=== PATIENT | female | born 1940 | race Caucasian/White ===

== ENCOUNTER → 2016-06-15 07:16 | Day surgery (SDC) | payer MEDICARE, BC ==
--- NOTE | 2016-06-08 15:26 | HP ---
CC: Dr. Mary Bolden HISTORY AND PHYSICAL: DATE OF PLANNED ADMISSION AND SURGERY: 06/15/16 HISTORY OF PRESENT ILLNESS: Ms. Arzate is a 76-year-old white female who is admitted with a bladder tumor for cystoscopy and excisional biopsies. Ms. Arzate noted an episode of total gross painless hematuria about two years ago. It was not associated with any voiding symptoms or any flank pain. It resolved spontaneously and she did well afterwards. No consultation sought, and she did not have any work-up. About 3 weeks ago, she had an episode of painless gross hematuria. It persisted for about a day and resolved spontaneously.I was not associated with any renal or voiding symptoms. She was evaluated by Dr. Bolden who obtained a CT of the abdomen and pelvis with intravenous contrast. The study showed normal kidneys, normal collecting systems and ureters without any abnormal filling defects. The patient was then evaluated in my office. She had a cystoscopy which showed a 1.5 to 2 cm flat lesion in the left lateral bladder wall. 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 Because of that finding, the patient is admitted for the above procedure. PAST MEDICAL HISTORY AND SYSTEM REVIEW: The patient was a smoker of about one pack per day for 30 years; however, she stopped about 25 years ago. She has developed COPD and she is on inhalers as needed. She does not require oxygen. She is fairly active. She has history of hypertension and has been on lisinopril 5 mg daily. She has some arthritis on supplements. ALLERGIES/INTOLERANCES: She denies any allergies to medication, but is intolerant to Codeine. 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 She has not had any pelvic surgeries. PHYSICAL EXAM: GENERAL: Pleasant white female who looks her age. VITAL SIGNS: Blood pressure 120/80, pulse 70. LUNGS: Clear. HEART: Regular and rhythmic. No murmurs. ABDOMEN: Soft. No masses, no tenderness, and no CVA tenderness. PELVIC EXAM: Done at the time of the cystoscopy showed no pelvic masses. IMPRESSION: 1. Bladder tumor, with normal upper tracts by CT of the abdomen and pelvis with IV contrast. 2. Chronic obstructive pulmonary disease with past history of smoking. PLAN: Plan is for cystoscopy and excisional biopsies of the bladder tumor. I discussed the above plans with the patient. She understands that she might require additional treatments depending upon the pathology report. Some of the potential complications of the procedure include infection, hematuria, small incidence of bladder perforation. All her questions were answered. [id number]/[facility] #: [id number] RED
[~2016-06-15 07:16] MED LIST: Buffered Lidocaine 1% SYR 3ML* 3 ML/SYR SYRINGE INTRADERM ONE; Dexamethasone IV* 4 MG/ML 1 ML (4 MG) IV SLOW PU ONE; Dexamethasone IV* 4 MG/ML 1 ML (4 MG) ONE; DiMENhydriNATE IV* 50 MG/ML VIAL IV PUSH PRN; Famotidine IV* 10 MG/ML 2 ML (20 mg) IV ONE; Famotidine IV* 10 MG/ML 2 ML (20 mg) ONE; HYDROmorphone INJ* 1 MG/ML CARPUJECT SYRINGE IV PRN; HYDROmorphone INJ* 1 MG/ML CARPUJECT SYRINGE ONE; Ketorolac INJ* 30 MG/ML 1 ML VIAL ONE; Lidocaine 2% PF * 5 ML VIAL ONE; Midazolam* 1 MG/ML 2 ML VIAL (2 MG) ONE; Ondansetron INJ* 2 MG/ML VIAL ONE; PROCHLORPERAZINE INJ 5 MG/ML 2 ML VIAL IV PRN; Propofol* 10 MG/ML 20 ML BTL IV PUSH ONE; cefTRIAXone VIAL(*) 1,000 MG in NS 0.9% 50 ML* 50 ML IVPB ONE; fentaNYL* 50 MCG/ML 2 ML VIAL (100 MCG VIAL) IV PRN; fentaNYL* 50 MCG/ML 2 ML VIAL (100 MCG VIAL) ONE; mitoMYcin PWD* 40 MG in Sterile Water for Inj* 40 ML IRRIGATION ONE
[2016-06-15 12:06] VITALS: BP 131/79
--- NOTE | 2016-06-15 23:56 | OP ---
DATE OF OPERATION: 06/15/16 [facility] DATE OF : 36 SURGEON: Dr. Wade. ANESTHESIOLOGIST: Diallo Arrieta MD. ANESTHESIA: General. PRE-OP DIAGNOSIS: Bladder tumor (left posterolateral bladder wall, 1.5 cm). POST-OP DIAGNOSIS: Bladder tumor (left posterolateral bladder wall, 1.5 cm). OPERATIVE PROCEDURE: Cystoscopy, excisional biopsies and fulguration of the tumor of left posterior bladder wall (1.5 cm). INDICATION FOR PROCEDURE: Ms. Arzate is a 76-year-old white female with past history of smoking and was referred by Dr. Bolden because of recurrent episodes of gross painless hematuria. CT of the abdomen and pelvis with IV contrast showed normal kidneys, ureters, and bladder, no abnormal filling defects noted. Office cystoscopy showed a 1.5 cm tumor in the left posterolateral bladder wall. 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 PATHOLOGY: At cystoscopy, there was a 1.5 cm flat papillary tumor in the left posterolateral bladder wall. 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 . The ureteral orifices looked normal. There were no other suspicious bladder lesions seen. No areas to suggest carcinoma in situ. No bladder diverticula noted. Pelvic examination showed no bladder masses and no pelvic masses. DESCRIPTION OF PROCEDURE: After successful general anesthesia, the patient was placed in the dorsal lithotomy position and was prepped and draped for a cystoscopy. Cystoscopy was performed. The bladder was carefully inspected and the above findings were noted. Using the rigid biopsy forceps, the above tumor was excised. Muscle fibers were seen in the bed of the tumor. There was; however, no bladder perforation. The bed of the tumor and the surrounding area was thoroughly fulgurated with the Bugbee electrode with the coagulation current. At the completion of the procedure, there was very good hemostasis. There was no residual tumor noted. There was no evidence of any bladder perforation. The left ureteral orifice was intact. The cystoscope was removed and the size 16-Maltese Corbin catheter was passed inside the bladder and the balloon inflated with 10 cc of water. Bimanual exam was then performed. The patient tolerated the procedure well and left the operating room in good condition. The plan is to give the patient to 1 dose of intravesical mitomycin-C in the PACU. CC: Dr. Mary Bolden * [id number]/[facility] #: [id number] RED
== END | disposition home or self-care (01) ==
LOC: OR 07:16
PROVIDERS: ATTEND Urology
DX: C67.4 Malignant neoplasm of posterior wall of bladder (principal); I10 Essential (primary) hypertension; J44.9 Chronic obstructive pulmonary disease, unspecified
CPT/HCPCS: 88305; J0696; J1100; J1170; J1885; J2250; J2405; J2704; J3010; J9280

== ENCOUNTER 2018-04-07 18:22 | Emergency (ER) | payer MEDICARE, OTHER ==
--- NOTE | 2018-04-07 18:28 | UC ---
Laceration HPI - HPI Summary HPI Summary: 77 yo female presents with RIGHT leg laceration. 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 She bandaged the area and came to . - History Of Current Complaint Stated Complaint: LEG LACERATION Time Seen by Provider: 04/07/18 18:28 Hx Obtained From: Patient Laceration Location: Leg Mechanism Of Injury: Blunt Trauma Severity: Mild Pain Intensity: 3 - Allergies/Home Medications Allergies/Adverse Reactions: Allergies Allergy/AdvReac Type Severity Reaction Status Date / Time codeine Allergy Unknown Unknown Verified 04/07/18 18:31 Reaction Details Home Medications: Home Medications Lisinopril TAB* [Prinivil TAB*] 5 mg PO DAILY 04/07/18 [History Confirmed ] PMH/Surg Hx/FS Hx/Imm Hx Cardiovascular History: Hypertension Respiratory History: COPD - Surgical History Surgical History: Yes Surgery Procedure, Year, and Place: APPENDECTOMY A CHILD. 1968 CSECTION, [facility]. 2007 BILATERAL CATARACT EXTRACTION WITH IOL IMPLANTS, [facility],cystoscopy - Social History Lives: With Family Alcohol Use: Daily Substance Use Type: None Smoking Status (MU): Former Smoker Type: Cigarettes Amount Used/How Often: 1 PPD FOR ABOUT 25+ YEARS Length of Time of Smoking/Using Tobacco: 25+ Have You Smoked in the Last Year: No When Did the Patient Quit Smoking/Using Tobacco: - Immunization History Most Recent Tetanus Shot: October 2013 Review of Systems All Other Systems Reviewed And Are Negative: Yes Constitutional: Positive: Negative Skin: Positive: Other - Right leg laceration Respiratory: Positive: Negative Cardiovascular: Positive: Negative Neurological: Positive: Negative Psychological: Positive: Negative Physical Exam - Summary Physical Exam Summary: GENERAL: NAD. WDWN. No pain distress. SKIN: RIGHT LE.5cm flap-like laceration extending into the subcutaneous tissue with fat exposed. Mild active bleeding. Wound appears cleaned CHEST: No accessory muscle use. Breathing comfortably and in no distress. CV: Pulses intact. Cap refill <2seconds NEURO: Alert. PSYCH: Age appropriate behavior. Triage Information Reviewed: Yes Vital Signs: Vital Signs: Temp Pulse Resp BP Pulse Ox 98.1 F 97 16 155/80 89 04/07/18 18:26 04/07/18 18:26 04/07/18 18:26 04/07/18 18:26 04/07/18 18:26 Vital Signs Reviewed: Yes Laceration Repair - Laceration Repair 1 Description: Stellate Laceration Size After Repair: Length (cm) - 3.5 Modified For Repair: No Type Injection: Local Anesthesia Used: 2.0% Lido Irrigation With Pressure Irrigation Device: Yes Closure Material: Sutures - #9 Closure Method: Single Layer Suture Of: Skin Suture Type: Prolene Laceration Course/Dx - Course/Dx Course Of Treatment: The procedure was explained to the pt and all questions were answered. A time out was performed, witnessed, and signed. The area was irrigated with 500mL sterile saline. 2mL of 2% lidocaine without epi was administered and good anesthetization was achieved. In the usual sterile fashion , EIGHT 5-0 and ONE 6-0 prolene interrupted sutures were placed. The wound was bandaged with telfa. Pt tolerated procedure well. - Diagnosis Provider Diagnosis: Laceration of right lower leg Discharge - Sign-Out/Discharge Documenting (check all that apply): Patient Departure All imaging exams completed and their final reports reviewed: No Studies - Discharge Plan Condition: Stable Disposition: HOME Patient Education Materials: Care For Your Stitches (DC), Laceration (DC) Referrals: Mary Bolden MD [Primary Care Provider] - Additional Instructions: If you develop a fever, shortness of breath, chest pain, new or worsening symptoms - please call your PCP or go to the ED. Your blood pressure was high at todays visit. Please see your primary provider within 4 weeks for recheck and re-evaluation. 1) Please keep the area bandaged, clean, dry, and intact for the next 24- 48hours. 2) If you develop a fever, colored or thick discharge, increased pain or swelling - please call your PCP or go to the ED. 3) Please return in 10 days to have your NINE sutures removed. - Billing Disposition and Condition Condition: STABLE Disposition: Home
[2018-04-07 18:30] VITALS: BP 155/80
[2018-04-07] MEDS ORDERED: Lidocaine 2% PF * 5 ML VIAL INJ ONE (18:36)
== END 2018-04-07 19:25 | disposition home or self-care (01) ==
LOC: UCEAST 18:22
DX: S81.811A Laceration without foreign body, right lower leg, initial encounter (principal); W22.03XA Walked into furniture, initial encounter; Y92.009 Unspecified place in unspecified non-institutional (private) residence as the place of occurrence of the external cause; Z88.5 Allergy status to narcotic agent; I10 Essential (primary) hypertension; Z87.891 Personal history of nicotine dependence
CPT/HCPCS: 12002; 99211; G0463

== ENCOUNTER 2019-01-13 16:49 | Emergency (ER) | payer MEDICARE, OTHER ==
--- OUTSIDE RECORDS SUMMARY | 2019-01-13 16:57 | XMS REPORT | Continuity of Care Document ---
:1940 External Reference #:[id number] Author Name Mary Bolden M.D. Address [address] [place] [address] Care Team Providers Name Role Phone Mary Bolden - Family Medicine Care Team Information Sales Outfitter Lashawn Jimenez MD - Dermatology Care Team Information Sales Outfitter Estevan Randhawa - Urology Care Team Information Sales Outfitter [phone] Kun Wade - Urology Care Team Information Sales Outfitter [phone] [facility] Radiology Department - Diagnostic Care Team Information Sales Outfitter Radiology Christine Mora-Josh - Care Team Information Sales Outfitter [phone] Gastroenterology Problems Active Problems Provider Date Essential hypertension Alba Tyler M.D. Onset: 05/25/2011 Chronic obstructive lung disease Alba Tyler M.D. Onset: 05/25/2011 Hyperlipidemia Alba Tyler M.D. Onset: 05/25/2011 Impaired fasting glycaemia Alba Tyler M.D. Onset: 05/25/2011 Adult health examination Alba Tyler M.D. Onset: 09/21/2011 Contact dermatitis Alba Tyler M.D. Onset: 09/21/2011 Arthropathy Alba Tyler M.D. Onset: 09/21/2011 Hematuria syndrome Alba Tyler M.D. Onset: 09/21/2011 Contact dermatitis due to solvents Mary Bolden M.D. Onset: 05/29/2012 Arthropathy Mary Bolden M.D. Onset: 09/25/2012 Vitamin D deficiency Mary Bolden M.D. Onset: 09/25/2012 Allergic arthritis of multiple sites Mary Bolden M.D. Onset: 2014 Social History Type Date Description Comments Sex Unknown Tobacco Use Start: Unknown End: Former Cigarette Smoker 1 quit in the . x Unknown Pack Daily ~ 25 years. smoked about 30 years. ETOH Use Some once daily Tobacco Use Start: Unknown End: Patient is a former smoker Unknown Smoking Status Reviewed: 09/30/18 Patient is a former smoker Allergies, Adverse Reactions, Alerts Active Allergies Reaction Severity Comments Date Codeine Medications Active Medications SIG Qnty Indications Ordering Date Provider Prilosec OTC 1 by mouth every 90tabs Mary Pham 12/09/2018 20mg day Chandana Bolden Tablets DR Fluticasone Inhale 1 puff By 60units Mary Pham 07/14/2018 Propionate/Salmetero Mouth Two Times Chandana Bolden l Diskus Daily 100-50mcg/Dose Aerosol Lisinopril 1 by mouth every 90tabs I10 Coco 04/25/2017 5mg day Josse, ENVIRONMENTAL TECHNICIAN Tablets [place] Mary Pham 02/08/2015 Women's Daily Mov. Chandana Bolden Fish Oil 2 daily Mary Pham 07/30/2013 600mg Chandana Bolden Capsules Glucosamine Sulfate 1 daily Mary Pham 07/30/2013 Chandana Bolden 500mg Capsules Spiriva Handihaler inhale the 30caps Mary Pham 11/18/2008 contents of one Chandana Bolden 18mcg Capsules capsule in the handihaler once daily Ketoconazole Shampoo Unknown History Medications Ranitidine HCL take one 60tabs K21.9 Mary Pham 12/05/2018 - 150mg Tablets tablet by Chandana Bolden 12/23/2018 mouth two times daily Methylprednisolone day 1- take 5 15tabs R21 Waldemar Coburn 09/30/2018 - 4mg Tablets tablets day 2- Chandana Ozuna 12/05/2018 take 4 tablets day 3- take 3 tablets day 4- take 2 tablets day 5- take 1 tablet Medications Administered in Office Medication SIG Qnty Indications Ordering Provider Date H1N1 MDCR vaccine any route Coco Domínguez, 05/07/2009 Chandana Injection TB Intradermal Test TWIN Gutierrez 06/16/2003 Injection Allergy Injection Two Or Nurse, Nurse 09/16/1996 More Injection Immunizations CPT Code Status Date Vaccine Reaction Lot # 60521 Given 01/14/2018 Influenza Vac, Quadriv[place], [place] [id number] Given 08/05/2014 Pneumococcal Conjugate Vacc-13 [id number] 67564 Given 02/04/2014 High-Dose, Influenza Virus [id number] Vacccine-fluzone 65 and older 66497 Given 01/27/2012 DO Not Use Split Influenza Virus Vaccine 95241 Given 01/05/2011 DO Not Use Split Influenza Virus Vaccine 67421 Given 08/31/2010 Zostivax [id number] 61111 Given 01/19/2010 Pneumococcal Immunization [id number] 17065 Given 01/19/2010 DO Not Use Split Influenza Virus [id number] Vaccine 29312 Given 02/16/2009 DO Not Use Split Influenza Virus [id number] Vaccine 49857 Given 02/16/2008 DO Not Use Split Influenza Virus [id number] Vaccine 95791 Given 02/07/2007 DO Not Use Split Influenza Virus [id number] Vaccine 14915 Given 03/02/2006 DO Not Use Split Influenza Virus [id number] Vaccine 22677 Given 03/08/2004 Influenza Virus Vaccine, Live For Intranasla Use 68244 Given 03/31/2001 Influenza Immunization 58849 Given 03/31/2001 Influenza Immunization 13076 Given 03/31/2001 DO Not Use Split Influenza Virus Vaccine 63189 Given 01/13/2001 Pneumococcal Immunization 81093 Given 02/26/2000 DO Not Use Split Influenza Virus Vaccine 56014 Given 02/21/1999 DO Not Use Split Influenza Virus Vaccine 54411 Given 02/24/1998 Influenza Immunization 01514 Given 02/18/1997 Influenza Immunization 61101 Given 11/12/1995 Td Immunization, For Use In Individuals 7 Years Or Older [id number] Ordered 10/27/2013 Tdap Tetanus, W Pertussis [facility] Vital Signs Date Vital Result Comment 12/23/2018 4:09pm BP Systolic 170 mmHg BP Diastolic 90 mmHg BP Systolic Recheck 165 mmHg BP Diastolic Recheck 80 mmHg Heart Rate 88 /min Body Temperature 98.6 F Respiratory Rate 12 /min O2 % BldC Oximetry 94 % Height 64.5 inches 5'4.50" per pt Weight 116.00 lb BMI (Body Mass Index) 19.6 kg/m2 12/05/2018 11:07am BP Systolic 120 mmHg BP Diastolic 64 mmHg Heart Rate 72 /min Body Temperature 97.8 F Respiratory Rate 16 /min Weight 116.00 lb Results Description No Information Available Procedures Date Code Description Status 12/23/2018 41823 Electrocardiogram Complete Completed 02/17/2007 51722680 Mammogram Completed Medical Devices Description No Information Available Encounters Type Date Location Provider Dx Diagnosis Office Visit 12/05/2018 [facility] Office Mary Bolden, R25.2 Cramp and spasm 11:00a Chandana K21.9 Gastro-esophageal reflux disease without esophagitis R21 Rash and other nonspecific skin eruption Office Visit 09/30/2018 2:00p [facility] Office Joselin Moreno R21 Rash and other CHINTAN Saucedo nonspecific skin eruption Office Visit 09/18/2018 9:40a [facility] Office Mary Pierson44.9 Chronic Chandana Bolden obstructive pulmonary disease, unspecified M13.89 Other specified arthritis, multiple sites I10 Essential (primary) hypertension C67.9 Malignant neoplasm of bladder, unspecified Z63.79 Other stressful life events affecting family and household Assessments Date Code Description Provider 12/23/2018 I10 Essential (primary) hypertension Mary Bolden M.D. 12/23/2018 K21.9 Gastro-esophageal reflux disease without Mary Bolden M.D. esophagitis 12/23/2018 J44.9 Chronic obstructive pulmonary disease, Mary Bolden M.D. unspecified 12/23/2018 R06.02 Shortness of breath Mary Bolden M.D. 12/05/2018 R25.2 Cramp and spasm Mary Bolden M.D. 12/05/2018 K21.9 Gastro-esophageal reflux disease without Mary Bolden M.D. esophagitis 12/05/2018 R21 Rash and other nonspecific skin eruption Mary Bolden M.D. 09/30/2018 R21 Rash and other nonspecific skin eruption CHINTAN Riley 09/18/2018 J44.9 Chronic obstructive pulmonary disease, Mary Bolden M.D. 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 09/18/2018 I10 Essential (primary) hypertension Mary Bolden M.D. 09/18/2018 C67.9 Malignant neoplasm of bladder, unspecified Mary Bolden M.D. 09/18/2018 Z63.79 Other stressful life events affecting Mary Bolden M.D. family and household Plan of Treatment Future Appointment(s):12/24/2018 9:15 am - Mary Bolden M.D. at [facility]01/08/2019 9:00 am - Mary Bolden M.D. at [facility]12/23/2018 - Mary Bolden M.D.I10 Essential (primary) hypertensionNew Labs:CCS-Comp And Lipid ([facility]), Ordered: 12/23/18Hemoglobin A1c ( [facility]), Ordered: 12/23/18Brain Natural Peptide, Ordered: 12/23/18Comments:blood pressure readings came down to 168/80 on the right, and 165/80 on the left with good pulses onboth wrists.K21.9 Gastro-esophageal reflux disease without lbyejzlgjmiE91.9 Chronic obstructive pulmonary disease, unspecifiedComments: continue pulmonary rehab.R06.02 Shortness of breathNew Labs:TSH ([facility] ), Ordered: 12/23/18CBC Electronic ([facility]), Ordered: 12/23/18CCS-Comp And Lipid ( [facility]), Ordered: 12/23/18Brain Natural Peptide, Ordered: 12/23/18Comments:ekg unchanged from previous. LVH - left ventricular hypertrophywill order an ultrasound and stress test. You are not being overdramatic, and you can go to the ER , and probably SHOULD go to the ER if your shortness of breath continues to be worse.AllComments:Medication Management Patient Understands medications she's taking? Yes No Are there Barriers to Adherence? Yes No Has the patient been asked about herbal supplements and therapies, and OTC meds? Yes No Functional Status Description No Information Available Mental Status Description No Information Available Referrals Refer to Reason for Referral Status Appt Date Christine Mora PA-C New onset GERD jw Scheduled 01/01/[address] [place] [address] [phone]
--- OUTSIDE RECORDS SUMMARY | 2019-01-13 16:57 | XMS REPORT | Continuity of Care Document ---
:1940 External Reference #:[id number] Author Name Mary Bolden M.D. Address [address] [place] [address] Care Team Providers Name Role Phone Mary Bolden - Family Medicine Care Team Information Sprue Knocker Lashawn Jimenez MD - Dermatology Care Team Information Sprue Knocker [phone] Estevan Randhawa - Urology Care Team Information Sprue Knocker [phone] Kun Wade - Urology Care Team Information Sprue Knocker [phone] [facility] [place] [facility] Radiology Department - Diagnostic Care Team Information Sprue Knocker Radiology Christine Mora PA-C - Care Team Information Sprue Knocker [phone] Gastroenterology Danielito Goldman MD - Cardiovascular Care Team Information Sprue Knocker [phone] Disease Problems Active Problems Provider Date Essential hypertension [...] a former smoker Unknown Smoking Status Reviewed: 01/08/19 Patient is a former smoker Allergies, Adverse Reactions, Alerts Active Allergies Reaction Severity Comments Date Codeine Medications Active Medications SIG Qnty Indications Ordering Date Provider Respiratory Therapy continue J44.9 Mary Pham 01/08/2019 respiratory Chandana Bolden therapy. Cephalexin 1 by mouth three 21tabs S81.812A Mary Pham 01/08/2019 250mg times a day Chandana Bolden Tablets Ranitidine HCL take 1 tablet by 60tabs Lakisha Bridges, 12/26/2018 150mg mouth one or two FURNITURE DIPPER Tablets times daily Prilosec OTC 1 by mouth every 90tabs Mary Pham 12/09/2018 20mg day Chandana Bolden Tablets DR Fluticasone Inhale 1 puff By 60units Mary Pham 07/14/2018 Propionate/Salmetero Mouth Two Times Chandana Bolden l Diskus Daily 100-50mcg/Dose Aerosol Lisinopril 1 by mouth every 90tabs I10 Coco 04/25/2017 5mg day Josse, FURNITURE DIPPER Tablets [place] Light Mary Pham 02/08/2015 Women's Daily Mov. Chandana Bolden Fish Oil 2 daily Mary Pham 07/30/2013 600mg Chandana Bolden Capsules Glucosamine Sulfate 1 daily Mary Pham 07/30/2013 Chandana Bolden 500mg Capsules Spiriva Handihaler inhale the 30caps Mary Ankit 11/18/2008 contents of one Chandana Bolden 18mcg Capsules capsule in the handihaler once daily Ketoconazole Shampoo Unknown History Medications Methylprednisolone take as 21units Lakisha Bridges, 12/26/2018 - 4mg TBPK directed FURNITURE DIPPER 01/08/2019 Ranitidine HCL take one tablet 60tabs K21.9 Mary Pham 12/05/2018 - 150mg Tablets by mouth two Chandana Bolden 12/23/2018 times daily Methylprednisolone day 1- take 5 15tabs R21 Waldemar Coburn 09/30/2018 - 4mg Tablets tablets day 2- Chandana Ozuna 12/05/2018 take 4 tablets day 3- take 3 tablets day 4- take 2 tablets day 5- take 1 tablet Medications Administered in Office Medication SIG Qnty Indications Ordering Provider Date H1N1 MDCR vaccine any route Coco Domígnuez, 05/07/2009 Chandana Injection TB Intradermal Test Lakisha Bridges, [facility] 06/16/2003 Injection Allergy Injection Two Or Nurse, Nurse 09/16/1996 More Injection Immunizations CPT Code Status Date Vaccine Reaction Lot # [id number] Given 01/14/2018 Influenza Vac, Quadriv[place], [place] [id number] Given 08/05/2014 Pneumococcal Conjugate Vacc-13 [id number] 04012 Given 02/04/2014 High-Dose, Influenza Virus [id number] Vacccine-fluzone 65 and older 60897 Given 01/27/2012 DO Not Use Split Influenza Virus Vaccine 85717 Given 01/05/2011 DO Not Use Split Influenza Virus Vaccine 46838 Given 08/31/2010 Zostivax [id number] 18126 Given 01/19/2010 Pneumococcal Immunization [id number] 15881 Given 01/19/2010 DO Not Use Split Influenza Virus [id number] Vaccine 13520 Given 02/16/2009 DO Not Use Split Influenza Virus [id number] Vaccine 38142 Given 02/16/2008 DO Not Use Split Influenza Virus [id number] Vaccine 61788 Given 02/07/2007 DO Not Use Split Influenza Virus [id number] Vaccine 98209 Given 03/02/2006 DO Not Use Split Influenza Virus [id number] Vaccine 08531 Given 03/08/2004 Influenza Virus Vaccine, Live For Intranasla Use 16745 Given 03/31/2001 Influenza Immunization 71753 Given 03/31/2001 Influenza Immunization 89105 Given 03/31/2001 DO Not Use Split Influenza Virus Vaccine 85634 Given 01/13/2001 Pneumococcal Immunization 47654 Given 02/26/2000 DO Not Use Split Influenza Virus Vaccine 95863 Given 02/21/1999 DO Not Use Split Influenza Virus Vaccine 46506 Given 02/24/1998 Influenza Immunization 05041 Given 02/18/1997 Influenza Immunization 17509 Given 11/12/1995 Td Immunization, For Use In Individuals 7 Years Or Older 23472 Ordered 10/27/2013 Tdap Tetanus, W Pertussis ER/[facility] [place] Vital Signs Date Vital Result Comment 01/08/2019 9:03am BP Systolic 140 mmHg BP Diastolic 64 mmHg Heart Rate 78 /min Body Temperature 97.9 F Respiratory Rate 16 /min Height 64.5 inches 5'4.50" per pt Weight 112.00 lb BMI (Body Mass Index) 18.9 kg/m2 12/23/2018 4:09pm BP Systolic 170 mmHg BP Diastolic 90 mmHg BP Systolic Recheck 165 mmHg BP Diastolic Recheck 80 mmHg Heart Rate 88 /min Body Temperature 98.6 F Respiratory Rate 12 /min O2 % BldC Oximetry 94 % Height 64.5 inches 5'4.50" per pt Weight 116.00 lb BMI (Body Mass Index) 19.6 kg/m2 Results Test Date Facility Test Result H/L Range Note Laboratory test 12/24/2018 [facility] Hemoglobin A1c 5.2 % % 4.1- 5.7 finding (607)- - (Fma) Brain Natural Peptide 138 pg/mL High <100 Laboratory test finding 12/24/2018 Osorio Rachel(fma) TSH 1.35 mIU/L 0.50-6.00 Comprehensive Metabolic 12/24/2018 Devon Rachel([facility]ma) Sodium 135 mEq/L 134-149 Prof Potassium 3.8 mEq/L 3.6-5.5 Chloride 99 mEq/L 94-112 Carbon Dioxide 32 mEq/L 21-32 Glucose 115 mg/dL High 70-105 1 BUN 12 mg/dL 6-26 Creatinine 0.8 mg/dL 0.6-1.4 BUN/Creat Ratio 15.0 CALC 8.0-36.0 Calcium 8.7 mg/dL 8.6-10.2 Total Protein 5.9 g/dL Low 6.4-8.3 Albumin 3.9 g/dL 3.8-5.5 Globulin 2.0 g/dL 2.0-4.8 A/G Ratio 1.9 CALC 0.6-2.3 Alk. Phosphatase 98 U/L 30-110 Alt (SGPT) 10 U/L 7-35 Ast (Sgot) 18 U/L 5-34 Total Bilirubin 0.8 mg/dL 0.2-1.3 GFR Non- >60 ml/min/1.73m^ >=60 GFR >60 ml/min/1.73m^ >=60 Lipid Profile 12/24/2018 Devon Ramos([facility]) Cholesterol 185 mg/dL 120- 200 Triglycerides 96 mg/dL 30-200 HDL Cholesterol 56 mg/dL 30-85 LDL (Calculated) 110 CALC 0-129 VLDL Cholesterol 19 mg/dL 0-50 HDL Risk Factor 3.3 CALC 0.0-4.4 CBC Electronic a 12/24/2018 Devon Ramos([facility]) WBC 5.7 x10^3/UL 4.0- 10.0 RBC 4.16 x10^6/UL 3.93-6.00 HGB 13.5 g/dL 12.0-17.0 HCT 41 % 35-50 MCV 98.1 fL High 80.0-95.0 MCH 32.5 pg High 25.6-32.2 MCHC 33.1 g/dL 32.2-36.0 RDW-CV 13.0 % 11.6-14.4 PLT 180 x10^3/UL 163-400 MPV 10.0 fL 9.4-12.4 Damari# 3.22 x10^3/UL 1.56-6.13 Lymph# 1.08 x10^3/UL Low 1.18-3.74 Wilbarger# 0.72 x10^3/UL 0.24-0.82 Eos # 0.6 x10^3/UL High 0.0-0.5 Baso # 0.05 x10^3/UL 0.01-0.08 Damari% 56.9 % 34.0-70.0 Lymph % 19.1 % Low 20.0-52.0 Wilbarger% 12.7 % High 5.0-12.0 Eos% 10.4 % High 0.7-7.0 Baso% 0.9 % 0.1-1.2 1 consistent w/ previous results Procedures Date Code Description Status 12/23/2018 89553 Pulse Oximetry Completed 12/23/2018 41135 Electrocardiogram Complete Completed 02/17/2007 38196203 Mammogram Completed Medical Devices Description No Information Available Encounters Type Date Location Provider Dx Diagnosis Office Visit 12/23/2018 [facility] Office Mary Pham I10 Essential (primary) 3:00p Chandana Bolden hypertension K21.9 Gastro-esophageal reflux disease without esophagitis J44.9 Chronic obstructive pulmonary disease, unspecified R06.02 Shortness of breath Office Visit 12/05/2018 11:00a [facility] Office Mary Pham R25.2 Cramp and Chandana Bolden spasm K21.9 Gastro-esophageal reflux disease without esophagitis R21 Rash and other nonspecific skin eruption Office Visit 09/30/2018 2:00p [facility] Office Joselin Moreno R21 Rash and other CHINTAN Saucedo nonspecific skin eruption Office Visit 09/18/2018 9:40a [facility] Office Mary Pham J44.9 Chronic Chandana Bolden obstructive pulmonary disease, unspecified 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 examination without abnormal findings 01/08/2019 I10 Essential (primary) hypertension Mary Bolden M.D. 01/08/2019 R73.01 Impaired fasting glucose Mary Boldne M.D. 01/08/2019 J44.9 Chronic obstructive pulmonary disease, Mary Bolden M.D. 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 01/08/2019 M54.5 Low back pain Mary Bolden M.D. 01/08/2019 S81.812A Laceration without foreign body, left Mary Bolden M.D. lower leg, initial encounter 12/24/2018 R06.02 Shortness of breath Mary Bolden M.D. 12/24/2018 I10 Essential (primary) hypertension Mary Bolden M.D. 12/24/2018 R73.01 Impaired fasting glucose Mary Bolden M.D. 12/23/2018 I10 Essential (primary) hypertension Mary Bolden [...] M.D. 09/18/2018 C67.9 Malignant neoplasm of bladder, Mary Bolden M.D. unspecified 09/18/2018 Z63.79 Other stressful life events affecting Mary Bolden M.D. family and household Plan of Treatment Future Appointment(s):05/08/2019 9:40 am - Mary Bolden M.D. at [facility]01/08/2019 - Mary Bolden M.D.Z00.00 Encounter for general adult medical examination without abnormal findingsComments:You are in excellent general health. I recommend regular physical exams with attention to good nutrition and exercise, eye exams every other year, and dental exams twice yearly. Goals:2 fresh fruits daily3 helpings of fresh green and multicolored vegetablesEat from the whole color spectrum. 40-60 Oz water dailyMOVE YOUR BODY. Bodies were made to be moved. exercise 30 minutes at least 4-5 times [id number] Essential (primary) hypertensionComments:Stable. Continue present meds.R73.01 Impaired fasting glucoseComments:stable. will check every year. no need for medication at this time.J44.9 Chronic obstructive pulmonary disease , unspecifiedNew Medication:Respiratory Therapy - continue respiratory therapy.Comments:continue fluticasone and spiriva.Follow up:4 months.M13.89 Other specified arthritis, multiple sitesComments:Injections help.M54.5 Low back painComments:follow up soon if doesn't get better as you think it should.S81.812A Laceration without foreign body, left lower leg, initial encounterNew Medication:Cephalexin 250 mg - 1 by mouth three times a dayComments :fermented foods are good to take when taking an antibiotic. non stick pads and paper tape.keep it loosely covered so air gets to it. open to air as often as possible.AllComments:Medication Management Patient Understands medications she' s taking? Yes No Are there Barriers to Adherence? Yes No Has the patient been asked about herbal supplements and therapies, and OTC meds? Yes No Functional Status Description No Information Available Mental Status Description No Information Available Referrals Refer to Reason for Referral Status Appt Date Christine Mora PA-C New onset GERD jw Scheduled 01/01/[address] [place] [address] [id number] [phone] Danielito Goldman MD echocardiogram giovnai nuclear exercise stress test Sent [address] [place] [address] [phone]
--- OUTSIDE RECORDS SUMMARY | 2019-01-13 16:57 | XMS REPORT | Continuity of Care Document ---
:1940 External Reference #:[id number] Author Name Mary Bolden M.D. Address [address] [place] [address] Care Team Providers Name Role Phone Mary Bolden - Family Medicine Care Team Information Entry Level Assistant Manager [phone] Lashawn Jimenez MD - Dermatology Care Team Information Entry Level Assistant Manager Estevan Randhawa - Urology Care Team Information Entry Level Assistant Manager [phone] Kun Wade - Urology Care Team Information Entry Level Assistant Manager [phone] [facility] [place] [place] Department - Diagnostic Care Team Information Entry Level Assistant Manager [phone] Radiology Problems Active Problems Provider Date Essential hypertension [...] Medications SIG Qnty Indications Ordering Date Provider Ranitidine HCL take one tablet by 60tabs K21.9 Mary Pham 12/05/2018 150mg mouth two times Chandana Bolden Tablets daily Fluticasone Inhale 1 puff By 60units Mary Pham 07/14/2018 Propionate/Salmetero Mouth Two Times Chandana Bolden l Diskus Daily 100-50mcg/Dose Aerosol Lisinopril 1 by mouth every 90tabs I10 Coco 04/25/2017 5mg day Josse, SIZING SPONGER Tablets [place] Mary Pham 02/08/2015 Women's Daily Mov. Chandana Bolden Fish Oil 2 daily Mary Pham 07/30/2013 600mg Chandana Bolden Capsules Glucosamine Sulfate 1 daily Mary Pham 07/30/2013 Chandana Bolden 500mg Capsules Spiriva Handihaler inhale the 30caps Mary Pham 11/18/2008 contents of one Chandana Bolden 18mcg Capsules capsule in the handihaler once daily Ketoconazole Shampoo Unknown History Medications Methylprednisolone day 1- take 5 15tabs R21 [...] Code Status Date Vaccine Reaction Lot # [id number] Given 01/14/2018 Influenza Vac, Quadriv[place], [place] [address] Given 08/05/2014 Pneumococcal Conjugate Vacc-13 [id number] 37826 Given 02/04/2014 High-Dose, Influenza Virus [id number] Vacccine-fluzone 65 and older 66763 Given 01/27/2012 DO Not Use Split Influenza Virus Vaccine 92033 Given 01/05/2011 DO Not Use Split Influenza Virus Vaccine 44623 Given 08/31/2010 Zostivax [id number] 68026 Given 01/19/2010 Pneumococcal Immunization [id number] 73265 Given 01/19/2010 DO Not Use Split Influenza Virus [id number] Vaccine 63408 Given 02/16/2009 DO Not Use Split Influenza Virus [id number] Vaccine 36872 Given 02/16/2008 DO Not Use Split Influenza Virus [id number] Vaccine 03190 Given 02/07/2007 DO Not Use Split Influenza Virus [id number] Vaccine 54794 Given 03/02/2006 DO Not Use Split Influenza Virus [id number] Vaccine 59087 Given 03/08/2004 Influenza Virus Vaccine, Live For Intranasla Use 82243 Given 03/31/2001 Influenza Immunization 46765 Given 03/31/2001 Influenza Immunization 72311 Given 03/31/2001 DO Not Use Split Influenza Virus Vaccine 19197 Given 01/13/2001 Pneumococcal Immunization 50036 Given 02/26/2000 DO Not Use Split Influenza Virus Vaccine 93565 Given 02/21/1999 DO Not Use Split Influenza Virus Vaccine 41249 Given 02/24/1998 Influenza Immunization 62867 Given 02/18/1997 Influenza Immunization 36748 Given 11/12/1995 Td Immunization, For Use In Individuals 7 Years Or Older 91887 Ordered 10/27/2013 Tdap Tetanus, W Pertussis [place] [place] [place] Vital Signs Date Vital Result Comment 12/05/2018 11:07am BP Systolic 120 mmHg BP Diastolic 64 mmHg Heart Rate 72 /min Body Temperature 97.8 F Respiratory Rate 16 /min Weight 116.00 lb 09/30/2018 2:05pm BP Systolic 142 mmHg BP Diastolic 72 mmHg Heart Rate 104 /min Body Temperature 97.7 F Weight 122.00 lb Results Description No Information Available Procedures Date Code Description Status 02/17/2007 [id number] Mammogram Completed Medical Devices Description No Information Available Encounters Type Date Location Provider Dx Diagnosis Office Visit 09/30/2018 [facility] Joselin Saucedo, R21 Rash and other 2:00p PA nonspecific skin eruption Office Visit 09/18/2018 [facility] Office Mary Pierson44.9 Chronic obstructive 9:40a Cheryl Bolden. 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 12/05/2018 K21.9 Gastro-esophageal reflux disease without Mary Bolden M.D. esophagitis 12/05/2018 R21 Rash and other nonspecific skin eruption Mary Bolden M.D. 09/30/2018 R21 Rash and other nonspecific skin eruption Joselin Saucedo, PA 09/18/2018 J44.Saima Chronic obstructive pulmonary disease, Mary Bolden M.D. 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 09/18/2018 I10 Essential (primary) hypertension Mary Bolden M.D. 09/18/2018 C67.9 Malignant neoplasm of bladder, unspecified Mary Bolden M.D. 09/18/2018 Z63.79 Other stressful life events affecting Mary Bolden M.D. family and household Plan of Treatment Future Appointment(s):01/08/2019 9:00 am - Mary Bolden M.D. at [facility]12/05/2018 - Mary Bolden M.D.R25.2 Cramp and spasmComments:more potassium - bananas, fruits, avocados.also magnesium - mag citrate ~200m 1-2 pills at night (vitamin world. )you know you're taking too much if you have diarrhea.K21.9 Gastro-esophageal reflux disease without esophagitisNew Medication:Ranitidine HCL 150 mg - take one tablet by mouth two times dailyComments:this might help with the rash and allergies.R21 Rash and other nonspecific skin eruptionComments:continue the chandrika and cortisone cream.AllComments:Medication Management Patient Understands medications she's taking? Yes No Are there Barriers to Adherence? Yes No Has the patient been asked about herbal supplements and therapies, and OTC meds? Yes No Functional Status Description No Information Available Mental Status Description No Information Available Referrals Description No Information Available
--- OUTSIDE RECORDS SUMMARY | 2019-01-13 16:57 | XMS REPORT | Continuity of Care Document ---
:1940 External Reference #:[id number] Author Name Christine Mora PA-C Address [address] [place], [place] [id number] Care Team Providers Name Role Phone Mary Bolden MD Care Team Information Personnel Training Officer [phone] Problems Active Problems Provider Date Essential hypertension Christine Mora PA-C Onset: 01/11/2019 Gastroesophageal reflux disease Christine Mora PA-C Onset: 01/01/2019 Social History Type Date Description Comments Sex Unknown Tobacco Use Start: Unknown End: Unknown Patient is a former smoker Smoking Status Reviewed: 01/01/19 Patient is a former smoker Allergies, Adverse Reactions, Alerts Active Allergies Reaction Severity Comments Date Codeine 12/11/2018 Medications Active Medications SIG Qnty Indications Ordering Date Provider Prilosec OTC 1 by mouth every 90tabs Mary Bolden, 12/09/2018 20mg day MD Tablets DR Fluticasone Inhale 1 puff By 60units Mary Bolden, 07/14/2018 Propionate/Salmetero Mouth Two Times MD davis Diskus Daily 100-50mcg/Dose Aerosol Lisinopril 1 by mouth every 90tabs I10 Josse, 04/25/2017 5mg day NIKKI Sepulveda Tablets Glucosamine Sulfate 1 daily Mary Bolden, 07/30/2013 500mg Capsules Spiriva Handihaler inhale the 30caps Mary Bolden, 11/18/2008 contents of one 18mcg Capsules capsule in the handihaler once daily History Medications Ranitidine HCL take one tablet 60tabs K21.9 Mary Bolden, 12/05/2018 - 150mg by mouth two 01/01/2019 Tablets times daily Immunizations Description No Information Available Vital Signs Date Vital Result Comment 01/01/2019 2:29pm Height 65 inches 5'5" Weight 116.00 lb BP Systolic 152 mmHg BP Diastolic 82 mmHg Heart Rate 94 /min BMI (Body Mass Index) 19.3 kg/m2 Results Description No Information Available Procedures Description No Information Available Medical Devices Description No Information Available Encounters Description No Information Available Assessments Date Code Description Provider 01/01/2019 K21.9 Gastro-esophageal reflux disease without Christine Mora PA-C esophagitis Plan of Treatment No Information Available Functional Status Description No Information Available Mental Status Description No Information Available Referrals Description No Information Available
[2019-01-13 17:03] VITALS: BP 112/59
[2019-01-13] MEDS ORDERED: Acetaminophen TAB* 325 MG PO ONE (17:06)
--- NOTE | 2019-01-13 17:19 | UC ---
Shortness of Breath HPI - HPI Summary HPI Summary: Patient is an 78-year-old female who presents to the urgent care with a chief complaint of having shortness of breath, fever, weakness, generalized malaise and fatigue, and today she has been sleeping most of the day. She denies any cough, denies any chest pain or palpitations. She has past medical history significant for COPD however she denies any wheezing. She doesn't wear any oxygen at home. She is put with the primary care physician Dr. Bolden and he recommended for the patient to go to the ER however he didn't want to drive across town. Therefore, she decided to come to the urgent care for further workup and management. She quit smoking about 15 years ago. - History of Current Complaint Chief Complaint: UCGeneralIllness Stated Complaint: LETHARGY, COPD, GI ISSUE Time Seen by Provider: 01/13/19 16:55 Hx Obtained From: Patient Onset/Duration: Gradual Onset Current Severity: None Dyspnea At: Exertion, Orthopena - Allergy/Home Medications Allergies/Adverse Reactions: Allergies Allergy/AdvReac Type Severity Reaction Status Date / Time codeine Allergy Unknown Unknown Verified 01/13/19 17:03 Reaction Details PMH/Surg Hx/FS Hx/Imm Hx Previously Healthy: Yes Respiratory History: COPD - Surgical History Surgical History: Yes Surgery Procedure, Year, and Place: APPENDECTOMY A CHILD. 1968 CSECTION, [facility]. 2007 BILATERAL CATARACT EXTRACTION WITH IOL IMPLANTS, [facility],cystoscopy - Family History Known Family History: Positive: Non-Contributory - Social History Alcohol Use: Daily Alcohol Amount: 1 DRINK/NIGHT Substance Use Type: None Smoking Status (MU): Former Smoker Type: Cigarettes Amount Used/How Often: 1 PPD FOR ABOUT 25+ YEARS Length of Time of Smoking/Using Tobacco: 25+ Have You Smoked in the Last Year: No When Did the Patient Quit Smoking/Using Tobacco: - Immunization History Most Recent Tetanus Shot: October 2013 Review of Systems All Other Systems Reviewed And Are Negative: Yes Constitutional: Positive: Fever, Fatigue Skin: Positive: Negative Eyes: Positive: Negative ENT: Positive: Negative Respiratory: Positive: Shortness Of Breath Cardiovascular: Positive: Negative Gastrointestinal: Positive: Negative Genitourinary: Positive: Negative Motor: Positive: Negative Neurovascular: Positive: Negative Musculoskeletal: Positive: Negative Neurological: Positive: Negative Psychological: Positive: Negative Is Patient Immunocompromised?: No Physical Exam - Summary Physical Exam Summary: VITAL SIGNS: Reviewed. GENERAL: Patient is a thin female who is sitting comfortable in the stretcher. Patient is not in any acute respiratory distress. HEAD AND FACE: Normocephalic and atraumatic. EYES: PERRLA, EOMI x 2, EARS: Hearing grossly intact. MOUTH: Oropharynx within normal limits. NECK: Supple, trachea is midline, no adenopathy, no JVD, no carotid bruit, no c- spine tenderness, neck with full ROM. CHEST: Symmetric, no tenderness at palpation LUNGS: CTA B/L. No wheezing or crackles. CVS: RRR, S1 and S2 present, no murmurs or gallops appreciated. ABDOMEN: Soft, NT, No distention. Normal BS. EXTREMITIES: FROM in all major joints, no edema, no cyanosis or clubbing. NEURO: Alert and oriented x 3. No acute neurological deficits. Speech is normal and follows commands. SKIN: Dry and warm Vital Signs: Initial Vital Signs Temp 102.4 F 01/13/19 16:55 Pulse 121 01/13/19 16:55 Resp 18 01/13/19 16:55 BP 112/59 01/13/19 16:55 Pulse Ox 89 01/13/19 16:55 Shortness of Breath Dx - Course Course Of Treatment: In the ED course the patient is tachycardic, hypoxic, and febrile. Therefore the patient started with Tylenol and a chest x-ray. CXR is negative for Pneumonia. I believe that the patient would benefit of a full workup in the emergency department therefore I refer the patient to the ED. The patient declined any ambulance transport she reports that she will drive herself. Patient understands that she is tachycardic, hypoxic and febrile. However the patient is mentating well and she is alert and oriented 3. - Differential Dx/Diagnosis Provider Diagnosis: Shortness of breath, Febrile, Tachycardia, Hypoxic Discharge ED - Sign-Out/Discharge Documenting (check all that apply): Patient Departure All imaging exams completed and their final reports reviewed: Yes - Discharge Plan Condition: Stable Disposition: HOME-RECOMMEND TO ED Patient Education Materials: Hypoxia (ED), Tachycardia (ED), Shortness of Breath (ED) Referrals: Mary Bolden MD [Primary Care Provider] - Additional Instructions: Patient will go to the ER, however she declined ambulance transport. - Billing Disposition and Condition Condition: STABLE Disposition: Home-Recommend to ED
== END 2019-01-13 17:35 | disposition home health service (06) ==
LOC: UCEAST 16:49
DX: R06.02 Shortness of breath (principal); R50.9 Fever, unspecified; R00.0 Tachycardia, unspecified; J44.9 Chronic obstructive pulmonary disease, unspecified; Z88.5 Allergy status to narcotic agent; Z87.891 Personal history of nicotine dependence
CPT/HCPCS: 71046; 99212; A9270-GY; G0463

== ENCOUNTER 2019-01-13 17:57 | Emergency (ER) | payer MEDICARE, OTHER ==
[2019-01-13 19:55] LABS: ABS Eosinophils 0.2 10^3/ul (0-0.6); ABS Lymphocytes 0.6 10^3/ul (1.0-4.8); ABS Monocytes 0.8 10^3/ul (0-0.8); ABS Neutrophils 7.6 10^3/ul (1.5-7.7); Eosinophil % 2.1 %; Hematocrit 40 % (35-47); Hemoglobin 14.2 g/dL (12.0-16.0); Lymphocyte % 6.3 %; Mean Corpuscular HGB Conc 36 g/dL (31-36); Mean Corpuscular Hemoglobin 34 pg (27-31); Mean Corpuscular Volume 95 fL (80-97); Mean Platelet Volume 8.1 fL (7.4-10.4); Platelet Count 159 10^3/uL (150-450); Red Blood Count 4.19 10^6 /uL (3.70-4.87); Red Cell Distribution Width 13 % (10-15); White Blood Count 9.2 10^3/uL (3.5-10.8)
[2019-01-13 20:05] LABS: Activated Partial Thrombo Time 27.1 seconds (26.0-38.0); INR 0.93 (0.82-1.09)
--- NOTE | 2019-01-13 20:06 | ED ---
Shortness of Breath - HPI Summary HPI Summary: This pt is an 78 Y/O F presenting [facility] accompanied by her friend with a CC of SOB. She states that she has been in Physical Therapy for rehab for her COPD and was improving. Now she states that she had a fever of 102 F at the urgent care before being sent to [facility]. She states that the episodes have been intermittent and that the symptoms are similar for PNA. She states that she has had a decreased appetite since the onset today. She has had epigastric CP since the onset today. She denies any chills, N/V, abdominal pains, headaches, and weakness. She states that she was on steroids but she is unsure of what they were for. She has no aggravating or alleviating factors. She states that she has a PMHx of COPD for smoking previously. - History of Current Complaint Chief Complaint: EDShortnessOfBreath Time Seen by Provider: 01/13/19 19:06 Hx Obtained From: Patient Onset/Duration: Sudden Onset - today, Still Present Timing: Constant Current Severity: Moderate Aggravating Factors: Nothing Alleviating Factors: Nothing Associated Signs & Symptoms: Negative - chills, N/V, abdominal pains, headaches , and weakness, Chest Pain w/Cough, Fever - 102 F - Allergy/Home Medications Allergies/Adverse Reactions: Allergies Allergy/AdvReac Type Severity Reaction Status Date / Time codeine Allergy Unknown Unknown Verified 01/13/19 17:03 Reaction Details Home Medications: Home Medications Cephalexin CAP* [Keflex CAP*] 250 mg PO TID 01/13/19 [History Confirmed 01/13/19 ] Omeprazole CAP (NF) [Prilosec CAP* 20 MG] 20 mg PO DAILY 01/13/19 [History Confirmed 01/13/19] Ranitidine TAB (NF) [Zantac TAB (NF)] 150 mg PO BID 01/13/19 [History Confirmed 01/13/19] Tiotropium CAP.INH (NF) [Spiriva CAP.INH*] 1 cap.inh INH DAILY 01/13/19 [ History Confirmed 01/13/19] PMH/Surg Hx/FS Hx/Imm Hx Previously Healthy: Yes Cardiovascular History: Reports: Hx Hypertension Denies: Hx Congestive Heart Failure Respiratory History: Reports: Hx Chronic Obstructive Pulmonary Disease (COPD), Other Respiratory Problems/Disorders - HX OF PNEUMONIA. MARCH 2016/APRIL 2016 Musculoskeletal History: Reports: Hx Arthritis - OSTEOARTHRITIS BILATERAL KNEES Sensory History: Reports: Hx Cataracts - HX OF Denies: Hx Contacts or Glasses, Hx Hearing Aid Opthamlomology History: Reports: Hx Cataracts - HX OF Denies: Hx Contacts or Glasses - Cancer History Cancer Type, Location and Year: ? bladder tumor - Surgical History Surgery Procedure, Year, and Place: APPENDECTOMY A CHILD. 1968 CSECTION, [facility]. 2007 BILATERAL CATARACT EXTRACTION WITH IOL IMPLANTS, [facility],cystoscopy Hx Anesthesia Reactions: No - Immunization History Date of Tetanus Vaccine: 2005 Infectious Disease History: No Infectious Disease History: Denies: Hx of Known/Suspected MRSA, Hx Shingles, Hx Tuberculosis, Traveled Outside the [place] in Last 30 Days - Family History Known Family History: Positive: Non-Contributory - Social History Occupation: Retired Lives: Alone Alcohol Use: Daily Alcohol Amount: 1 DRINK/NIGHT Hx Substance Use: No Substance Use Type: Reports: None Hx Tobacco Use: Yes Smoking Status (MU): Former Smoker Type: Cigarettes Amount Used/How Often: 1 PPD FOR ABOUT 25+ YEARS Length of Time of Smoking/Using Tobacco: 25+ Have You Smoked in the Last Year: No Review of Systems Positive: Fever - 102. Negative: Chills Positive: Chest Pain - with associated cough Positive: Shortness Of Breath, Cough Negative: Abdominal Pain, Vomiting, Nausea Negative: Headache, Weakness All Other Systems Reviewed And Are Negative: Yes Physical Exam - Summary Physical Exam Summary: Constitutional: Well-developed, Well-nourished, Alert. (-) Distressed Skin: Warm, Dry HENT: Normocephalic; Atraumatic Eyes: Conjunctiva normal Neck: Musculoskeletal ROM normal neck. (-) JVD, (-) Stridor, (-) Nuchal rigidity Cardio: Rhythm regular, rate normal, Heart sounds normal; Intact distal pulses; Radial pulses are 2+ and symmetric. (-) Murmur Pulmonary/Chest wall: Effort normal. (-) Respiratory distress, (-) Wheezes, (-) Rales Bibasilar crackles that are very faint Abd: Soft, (-) tenderness, (-) Distension, (-) Guarding, (-) Rebound Musculoskeletal: (-) Edema, Healing laceration to the distal lower left leg, no distal tenderness Lymph: (-) Cervical adenopathy Neuro: Alert, Oriented x3 Psych: Mood and affect Normal Triage Information Reviewed: Yes Vital Signs On Initial Exam: Initial Vitals Temp Pulse Resp BP Pulse Ox 99.2 F 104 18 102/59 91 01/13/19 18:09 01/13/19 18:09 01/13/19 18:09 01/13/19 18:09 01/13/19 18:09 Vital Signs Reviewed: Yes Diagnostics - Vital Signs Vital Signs Temp Pulse Resp BP Pulse Ox 01/13/19 19:29 91 16 102/59 90 01/13/19 19:01 95 19 91 01/13/19 19:00 96 18 124/53 91 01/13/19 18:59 98 18 90 01/13/19 18:09 99.2 F 104 18 102/59 91 - Laboratory Lab Results: Lab Results 01/13/19 Range/Units 19:49 WBC 9.2 (3.5-10.8) 10^3/uL RBC 4.19 (3.70-4.87) 10^6 /uL Hgb 14.2 (12.0-16.0) g/dL Hct 40 (35-47) % MCV 95 (80-97) fL MCH 34 H (27-31) pg MCHC 36 (31-36) g/dL RDW 13 (10-15) % Plt Count 159 (150-450) 10^3/uL MPV 8.1 (7.4-10.4) fL Neut % (Auto) 83.1 % Lymph % (Auto) 6.3 % Day % (Auto) 8.2 % Eos % (Auto) 2.1 % Baso % (Auto) 0.3 % Absolute Neuts (auto) 7.6 (1.5-7.7) 10^3/ul Absolute Lymphs (auto) 0.6 L (1.0-4.8) 10^3/ul Absolute Monos (auto) 0.8 (0-0.8) 10^3/ul Absolute Eos (auto) 0.2 (0-0.6) 10^3/ul Absolute Basos (auto) 0.0 (0-0.2) 10^3/ul Absolute Nucleated RBC 0.0 10^3/ul Nucleated RBC % 0.0 Result Diagrams: 01/13/19 19:49 01/13/19 19:49 Lab Statement: Any lab studies that have been ordered have been reviewed, and results considered in the medical decision making process. - EKG 1913 Cardiac Rate: NL - 93 BPM EKG Rhythm: Sinus Rhythm ST Segment: Normal Ectopy: None EKG Comparison: No Significant Change Summary of EKG Findings: An EKG at 1913 reveals a NSR at 93 BPM, nml axis, nml intervals. No STEMI. No acute changes. Interpreted by Dr. alvarez at 19:16 01/13. Re-Evaluation - Re-Evaluation First Eval Re-Evaluation Time: 21:04 Change: Unchanged Comment: Her X-Ray results were reviewed and the Dx of no acute respiratory disease is noted and agreed upon. However she does have hyperinflation which is consistent with COPD and her Costophrenic angles have a slight infiltrate. This is believed to be caused by bronchitis. Her old laboratory results were reviewed and she had a sodium count of 135 previously and currently has a count of 130. She will receive fluids and be treated for bronchitis with a nebulizer. She is currently laying on her bed reading in no apparent distress and she currently lacks any wheezing. Second Eval Re-Evaluation Time: 22:25 Change: Improved Comment: Pt states that she is feeling much better and refuses a repeat blood work. She states that she usually ambulates between 90-92% O2 and is able to ambulate without hypoxia or dysrhtymia. She will be discharged home and treated for presumed bronchitis. She will be discharged with a Z-pack and a nebulizer incase she develops increased symptoms. Course/Dx - Course Course Of Treatment: This pt is an 78 Y/O F presenting to [facility] accompanied by her friend with a CC of SOB. She states that she has been in Physical Therapy for rehab for her COPD and was improving. Now she states that she had a fever of 102 F at the urgent care before being sent to [facility]. She states that the episodes have been intermittent and that the symptoms are similar for PNA. During her PE she was found to have Bibasilar crackles that are very faint. Her EKG at 1913 reveals a NSR at 93 BPM, nml axis, nml intervals. No STEMI. No acute changes. The pt was re-evaluated at 2106: Her X-Ray results were reviewed and the Dx of no acute respiratory disease is noted and agreed upon. However she does have hyperinflation which is consistent with COPD and her Costophrenic angles have a slight infiltrate. This is believed to be caused by bronchitis. Her old laboratory results were reviewed and she had a sodium count of 135 previously and currently has a count of 130. She will receive fluids and be treated for bronchitis with a nebulizer. She is currently laying on her bed reading in no apparent distress and she currently lacks any wheezing. Pt states that she is feeling much better and refuses a repeat blood work. She states that she usually ambulates between 90-92% O2 and is able to ambulate without hypoxia or dysrhtymia. She will be discharged home and treated for presumed bronchitis. She will be discharged with a Z-pack and a nebulizer incase she develops increased symptoms. All other abnormal lab results are not pertinent to current cc. - Diagnoses Provider Diagnoses: Bronchitis Discharge ED - Sign-Out/Discharge Documenting (check all that apply): Patient Departure - discharge Patient Received Moderate/Deep Sedation with Procedure: No - Discharge Plan Condition: Stable Disposition: HOME Prescriptions: Albuterol HFA INHALER* [Ventolin HFA Inhaler*] 1 - 2 puff INH Q4H PRN #1 mdi PRN Reason: Sob/Wheezing Azithromycin 500 mg PO DAILY 7 Days #6 tablet Patient Education Materials: Acute Bronchitis (ED) Referrals: Mary Bolden MD [Primary Care Provider] - - Billing Disposition and Condition Condition: STABLE Disposition: Home - Attestation Statements Document Initiated by Adelina: Yes Documenting Scribe: Luis Pearl Provider For Whom Adelina is Documenting (Include Credential): Duarte Alvarez MD Scriblucy Attestation: Luis Kebede, scribed for Duarte Alvarez MD on 01/14/19 at 0752. Scribe Documentation Reviewed: Yes Provider Attestation: The documentation as recorded by the Luis price accurately reflects the service I personally performed and the decisions made by , Duarte Alvarez MD Status of Scribe Document: Viewed
[2019-01-13 20:19] LABS: BUN/Creatinine Ratio 15.4 (8-20); Calcium 8.8 mg/dL (8.6-10.3); EGFR African American 61.7 (>60); Magnesium 1.5 mg/dL (1.9-2.7); Potassium 4.3 mmol/L (3.5-5.0)
[2019-01-13 20:59] LABS: Urine Appearance Clear; Urine Bilirubin Negative (Negative); Urine Blood Negative (Negative); Urine Color Yellow; Urine Glucose Negative (Negative); Urine Ketones Negative (Negative); Urine Nitrite Negative (Negative); Urine Protein Negative (Negative); Urine Specific Gravity 1.017 (1.010-1.030); Urine Urobilinogen Negative (Negative)
[2019-01-13] MEDS ORDERED: Albuterol/Ipratropium NEB.SOL* Albuterol 2.5 MG/Ipratropium 0.5 MG 3 ML INH ONE (21:04)
[2019-01-13] MEDS ORDERED: Azithromycin 500 mg/250 ml NS 500 MG/250 ML BAG IVPB ONE (21:05)
[2019-01-13] MEDS ORDERED: Lactated Ringers 1000 ML Bag* 1,000 ML IV ONE (22:00)
[2019-01-13 22:35] VITALS: BP 94/65
== END 2019-01-13 22:35 | disposition home or self-care (01) ==
LOC: ED 17:57
DX: J40 Bronchitis, not specified as acute or chronic (principal); R06.02 Shortness of breath; I10 Essential (primary) hypertension; J44.9 Chronic obstructive pulmonary disease, unspecified; Z87.891 Personal history of nicotine dependence; R07.9 Chest pain, unspecified; R00.0 Tachycardia, unspecified; Z88.5 Allergy status to narcotic agent; R50.9 Fever, unspecified
CPT/HCPCS: 36415; 71046; 80048; 81003; 83735; 84484; 85025; 85610; 85730; 93005; 96361; 96374; 99212; 99284; A9270-GY; G0463; J0456

== ENCOUNTER 2023-04-13 14:47 | Observation (INO) ==
[2023-04-13] MEDS ORDERED: methylPREDNISolone SOD SUCC 125 mg 2 ML VIAL IV ONE (15:08)
[2023-04-13] MEDS ORDERED: cefTRIAXone 1 gm/50 mL D5W 1 GM/50 ML BAG IV ONE (15:08)
[2023-04-13] MEDS ORDERED: Albuterol/Ipratropium NEB.SOL (2.5/0.5 MG) 3 ML NEB.SOLN INH ONE (15:09)
[2023-04-13 15:27] LABS: ABS Lymphocytes 0.4 10^3/uL (1.0-4.8); ABS Monocytes 1.4 10^3/uL (0.0-0.9); ABS Neutrophils 13.1 10^3/uL (1.5-7.6); ABS Nucleated RBC 0.01 10^3/ul; Hematocrit 43.4 % (35-45); Hemoglobin 14.6 g/dL (11.5-14.3); Lymphocyte % 2.8 %; Mean Corpuscular Hemoglobin 31.4 pg (27-33); Mean Corpuscular Hgb Conc 33.7 g/dL (31-36); Mean Corpuscular Volume 93.3 fL (80-97); Mean Platelet Volume 8.8 fL (7.5-11.2); Nucleated Red Blood Cells % 0.1 %/100WBC (0.0-0.8); Platelet Count 137 10^3/uL (150-450); Red Blood Count 4.65 10^6/uL (3.63-4.92); Red Cell Distribution Width 13.7 % (12-17)
[2023-04-13 16:00] LABS: Albumin 4.2 g/dL (3.2-5.2); Albumin/Globulin Ratio 1.6 (1-3); C Reactive Protein 18.98 mg/L (<8.01); Calcium 8.9 mg/dL (8.6-10.3); Creatinine, Serum 1.01 mg/dL (0.51-0.95); Globulin 2.6 g/dL (2-4); Magnesium 1.8 mg/dL (1.9-2.7); Total Bilirubin 0.8 mg/dL (0.2-1.0); Total Protein 6.8 g/dL (6.4-8.9); eGFR CKD-EPI 54.9 (>60)
[2023-04-13] MEDS ORDERED: Iodixanol (CONTRAST) 320 MG/ML 100 ML SDV IV ONE (16:28)
[2023-04-13 17:07] LABS: High Sensitivity Troponin 1 Hr 13 pg/mL (<15)
[2023-04-13] MEDS ORDERED: Acetylcysteine INHALATION SOL 200 MG/ML NEB.SOLN 10 ML INH ONE (19:02)
[2023-04-13] MEDS ORDERED: Lactated Ringers 1000 ml BAG 1,000 ML IV ONE (19:04)
[2023-04-13] MEDS ORDERED: Albuterol (2.5 MG) 0.5 % CONC 0.5 ML NEB.SOLN INH ONE (20:59)
[2023-04-13] MEDS ORDERED: Albuterol 2.5mg/3 ml (0.083%) NEB.SOLN INH ONE (21:06)
[2023-04-13] MEDS ORDERED: Magnesium Sulfate IV 1GM/100ML 1 GM/100 ML BAG IV ONE (21:08)
[2023-04-13] MEDS ORDERED: guaiFENesin 100 mg/5 ml LIQ unit dose cup PO PRN (21:14)
[2023-04-13] MEDS ORDERED: Albuterol HFA INHALER 8 gm MDI INH PRN (22:40)
[2023-04-13] MEDS ORDERED: Azithromycin 500 mg/250 ml NS 500 MG/250 ML BAG IVPB SCH (23:00)
[2023-04-14] MEDS: Azithromycin 500 mg/250 ml NS 500 MG/250 ML BAG IVPB SCH (01:38)
[2023-04-14] MEDS: Enoxaparin 40 MG/0.4 ML SYR SUBCUT SCH ×2 (01:38→21:23)
[2023-04-14] MEDS: Mometasone/Formoter 100/5 MDI INH SCH ×3 (01:39→19:38)
[2023-04-14 07:50] LABS: Hematocrit 38.9 % (35-45); Mean Corpuscular Hemoglobin 31.1 pg (27-33); Mean Corpuscular Hgb Conc 33.3 g/dL (31-36); Mean Corpuscular Volume 93.4 fL (80-97); Mean Platelet Volume 8.8 fL (7.5-11.2); Platelet Count 109 10^3/uL (150-450); Red Blood Count 4.17 10^6/uL (3.63-4.92); Red Cell Distribution Width 13.7 % (12-17); White Blood Count 12.4 10^3/uL (3.8-11.8)
[2023-04-14] MEDS: SPIRIVA Respimat (tiotropium) 2.5 mcg/inh Inhaler INH SCH (08:37)
[2023-04-14 08:48] LABS: Calcium 8.2 mg/dL (8.6-10.3); Creatinine, Serum 0.89 mg/dL (0.51-0.95); Magnesium 1.9 mg/dL (1.9-2.7); Potassium 4.8 mmol/L (3.5-5.0); eGFR CKD-EPI 63.9 (>60)
[2023-04-15] MEDS: Azithromycin 500 mg/250 ml NS 500 MG/250 ML BAG IVPB SCH (02:07)
[2023-04-15] MEDS: Mometasone/Formoter 100/5 MDI INH SCH (07:52)
[2023-04-15] MEDS: SPIRIVA Respimat (tiotropium) 2.5 mcg/inh Inhaler INH SCH (07:52)
[2023-04-15 10:01] VITALS: BP 166/78
[2023-04-15] MEDS ORDERED: Regadenoson 0.4 MG/5 ML SYRINGE ONE (13:23)
== END 2023-04-15 14:00 | disposition home or self-care (01) ==
LOC: ED 14:47 → EDHOLD 14:47 → SUATTDRO 20:59 → MED 23:50
PROVIDERS: ADMIT Internal Medicine; ATTEND Internal Medicine